=== PATIENT | male | born 1990 | race Two or more races ===

== ENCOUNTER 2016-10-27 01:27 | Emergency (ER) | payer MEDICAID ==
[~2016-10-27] VITALS: Ht 172.7 cm; Wt 81.6 kg
[2016-10-27 02:59] VITALS: BP 130/87
== END 2016-10-27 03:00 | disposition home or self-care (01) ==
LOC: ER 01:33
DX: S80.12XA Contusion of left lower leg, initial encounter (principal); W10.9XXA Fall (on) (from) unspecified stairs and steps, initial encounter; W01.198A Fall on same level from slipping, tripping and stumbling with subsequent striking against other object, initial encounter; Y93.39 Activity, other involving climbing, rappelling and jumping off; Y92.89 Other specified places as the place of occurrence of the external cause; Y99.9 Unspecified external cause status
CPT/HCPCS: 73590; 99284; A4606; Z7610